=== PATIENT | female | born 1935 | race Caucasian/White ===

== ENCOUNTER → 2016-07-15 | Day surgery (SDC) | payer MEDICARE ==
[2016-07-09 13:41] VITALS: BMI 18.8
[~2016-07-15] MED LIST: BSS 500 ml-Vancomycin 10 mg-Phenylephrine 1 mg Irrigation IR ONE; CHONDROITIN SULFATE 0.5 ML/PFS INTRAOC ONE; DEXAMETHASONE 4 MG/ML VIAL IV PRN; DIAZEPAM 5 MG TAB PO PRN; FENTANYL 100 MCG/2 ML VIAL IV PRN; FENTANYL 100 MCG/2 ML VIAL ONE; HYDROCODONE 5 MG/ACETAMIN 325 MG TAB PO PRN; Hyaluronate Sodium (Provisc) 5.5 mg/0.55 ml syringe INTRAOC ONE; KETOROLAC TROMETH 30 MG/ML VIAL IV PRN; LABETALOL 20 MG/4 ML SYRINGE IV PRN; LR 1,000 ML IV ONE; LR 1,000 ML IV SCH; MIDAZOLAM 2 MG/2 ML VIAL ONE; NS 1,000 ML IV SCH; NS 250 ML IV SCH; ONDANSETRON HCL 4 MG/2 ML VIAL IV PRN; PHENYLEPHRINE 10 % OPHTH SOLN 5 ML BOT OP EYE ONE; SCOPOLAMINE TRANSDERMAL PATCH TOP PRN; TETRACAINE 0.5% 2 ML OPHTH SOLN OP EYE ONE; TETRACAINE 0.5% 2 ML OPHTH SOLN OP EYE PRN; TROPICAMIDE 1% OPHTH SOLN 2 ML BOTTLE OP EYE ONE; Vancomycin 10 MG, Phenylephrine 1,000 MCG in Balanced Salt Solution 500 ML IO ONE; hydrALAZINE 20 MG/ML VIAL IV PRN
--- NOTE | 2016-07-15 11:30 | SC.ANESEVA ---
Anesthesia Eval & Plan ([facility]) - Providers Stated Procedure: left cataract Surgeon:: Carmina Hernández - Medications/Allergies Allergies: Allergies latex Allergy (Verified 07/15/16 11:29) Rash-Generalized ranitidine HCl [From Zantac] Allergy (Verified 07/05/12 08:57) Unknown/See Comments FEELS LIKE HEMMOROIDS Home Medications: Home Medication List Amlodipine Besylate [Norvasc] 5 mg PO DAILY 07/09/16 [History] Aspirin 81 mg PO DAILY 07/09/16 [History] Bifidobacterium Infantis [Align] 10.5 mg PO DAILY 07/09/16 [History] Ezetimibe [Zetia] 10 mg PO DAILY 07/09/16 [History] Levothyroxine Sodium [Synthroid] 50 mcg PO DAILY 07/09/16 [History] Current Medication List: Reviewed - Focused Physical Exam NPO since: after Midnight Mallampati: Class II Neck: Full Range of Motion Cardiovascular/Chest: Normal Respiratory: Lungs clear Any problems with anesthesia, including nausea and vomiting?: No Prone to Motion Sickness: No Other: Diagnoses COMBINED FORMS OF AGE-RELATED CATARACT, LEFT EYE (07/15/16) Allergies Allergy/AdvReac Type Severity Reaction Status Date / Time latex Allergy Rash-Genera Verified 07/15/16 11:29 lized ranitidine HCl [From Zantac] Allergy Unknown/See Verified 07/05/12 08:57 Comments Home Medications Medication Instructions Recorded Last Taken Type Amlodipine Besylate [Norvasc] 5 mg PO DAILY 07/09/16 Unknown History Aspirin 81 mg PO DAILY 07/09/16 Unknown History Bifidobacterium Infantis [Align] 10.5 mg PO DAILY 07/09/16 Unknown History Ezetimibe [Zetia] 10 mg PO DAILY 07/09/16 Unknown History Levothyroxine Sodium [Synthroid] 50 mcg PO DAILY 07/09/16 07/15/16 History Height and Weight Patient's height 5 ft 2 in Patient's weight 46.82 kg Weight (Calculated Kilograms) 46.820 BMI 18.8 - Anesthetic Plan Anesthesia Type: MAC ASA Class: 3 - Focused Review of Systems Cardiac History: Yes: Hx Hypertension, Hx Abnormal Cholesterol/Hyperlipidemia No: Hx Cardiac Disorders HEENT: Yes: Cataracts, Hx Vision Problem (GLASSES), Other HEENT Problems Respiratory: Yes: Hx Chronic Obstructive Pulmonary Disease (COPD), Hx Snoring Gastrointestinal: Yes: Hx Colonoscopy No: Hx Gastrointestinal Disorders Neurological/Musculoskeletal: No: Hx Neurological Disorders Endocrine: Yes: Hx Hypothyroidism Smoking Status: Current some day smoker Surgical History: Yes: Appendectomy No: T&A
--- NOTE | 2016-07-15 12:29 | SC.ANESPOS ---
Post-Anesthesia Note LOC: Fully Awake Post-Anesthesia Assessment: Awake, Returned to Baseline, Hemodynamically Stable , Pain Control Adequate Phase I & II Recovery Complete: Yes Apparent Anesthesia Complication: No : N
[2016-07-15 12:32] VITALS: TEMP 97.3
[2016-07-15 12:39] VITALS: BP 112/65; PULSE 59
--- NOTE | 2016-07-15 12:39 | HIMOPRPT ---
DATE OF PROCEDURE: 07/15/16 PREOPERATIVE DIAGNOSIS: Cataract left eye. POSTOPERATIVE DIAGNOSIS: Cataract left eye. PROCEDURE: Cataract extraction by phacoemulsification of the left eye SURGEON: Carmina Hernández MD. ANESTHESIA: IV Sedation/Topical. COMPLICATIONS: None. PRE-OPERATIVE EVALUATION: The patient has been examined and deemed medically stable for cataract extraction with no apparent need for inpatient observation; outpatient setting is appropriate. Patient appears to be oriented to time, place and person. PROCEDURE IN DETAIL: The correct eye confirmed by patient, doctor, staff and paperwork. The operative eye was then marked by the doctor in the preoperative area. Eye drops were instilled into the operative eye to dilate the pupil. The patient was transported to the operating room and was placed in the supine position. A time out was performed before the beginning of the procedure. The operative eye was prepped and draped in the usual sterile fashion for ophthalmic surgery, taking care to isolate the lashes from the surgical field. Topical anesthetic drops were instilled into the operative eye. A lid speculum was placed. Betadine 5% was instilled in the operative eye for antiseptic. Microscope was brought into place for use throughout the case. The eye was inspected. A paracentesis incision was created with a side port knife. The temporal limbal corneal incision was performed with a yelitza blade. Viscoelastic was injected into the anterior chamber. Capsule forceps were used to create a capsulorhexis. Hydrodissection was performed with BSS. The nucleus was removed by phacoemulsification. Phaco time is noted below. The remaining cortical material was removed by I&A. The capsular bag was noted to be intact and distended with viscoelastic. The Intraocular lens was placed into the intact bag and centered without difficulty. The remaining viscoelastic was removed by I&A. Betadine 5% drops were placed to inspect wound and for antisepsis. Inspection revealed watertight wounds. The lid speculum was removed. Postoperative medications were instilled into the eye and a shield secured over the operative eye. IOL Type [id number] IOL Power 16.5 CDE 6.82 Discharge Summary: There were no complications and the patient was taken to the postoperative area in good condition. Postoperative instructions and outpatient follow up time were given.
== END ==
LOC: CPSC 09:54
PROVIDERS: ATTEND Ophthalmology
PROC: 08RK3JZ Replacement of Left Lens with Synthetic Substitute, Percutaneous Approach (ICD-10-PCS; principal; 2016-07-15 12:45)
DX: H25.812 Combined forms of age-related cataract, left eye (principal); I10 Essential (primary) hypertension; I25.10 Atherosclerotic heart disease of native coronary artery without angina pectoris; E78.5 Hyperlipidemia, unspecified; J44.9 Chronic obstructive pulmonary disease, unspecified; E03.9 Hypothyroidism, unspecified; F17.200 Nicotine dependence, unspecified, uncomplicated; Z79.899 Other long term (current) drug therapy
CPT/HCPCS: 66984; A9270; J2250; J3010; V2632; J3490